=== PATIENT | female | born 1995 | race Caucasian/White ===

== ENCOUNTER 2020-11-19 15:15 | Outpatient (REF) | payer OTHER, SELFPAY | END 2020-11-19 15:16 | disposition home or self-care (01) | LOC: HO.LAB 15:15 | PROVIDERS: Visit Provider Internal Medicine | DX: Z20.822 Contact with and (suspected) exposure to COVID-19 (principal) | CPT/HCPCS: 36415; C9803; U0003 ==

== ENCOUNTER 2021-03-01 12:31 | Outpatient (REF) | payer OTHER, SELFPAY ==
[2021-03-01 13:04] LABS: COVID-19 Test Negative (Negative); IDNOW Serial# 55D5AD1C
== END 2021-03-01 12:32 | disposition home or self-care (01) ==
LOC: HO.LAB 12:31
PROVIDERS: Visit Provider Internal Medicine
DX: Z20.822 Contact with and (suspected) exposure to COVID-19 (principal)
CPT/HCPCS: 36415; 87635; C9803

== ENCOUNTER → 2023-05-15 11:33 | Outpatient (BNVA) | payer OTHER, SELFPAY | PROVIDERS: Visit Provider Physician Assistant ==

== ENCOUNTER 2023-06-09 13:00 | Outpatient (AMB) | payer OTHER, SELFPAY ==
--- NOTE | 2023-06-09 13:03 | A.OFFVIS_ITS ---
Intake VS Expanded 06/09/23 13:07 Height 5 ft 5 in Weight 286 lb BMI 47.6 BP 131/78 Blood Pressure Location Rt brachial Blood Pressure Position Sitting Pulse 85 Pulse Source Pulse Oximeter Temp 97.6 F Temperature Source Temporal Artery Scan Pulse Oximetry 100 Oxygen Delivery Method Room Air Body Fat 141.8 Body Fat Percentage 49.6 Free Fat Mass 144.2 Muscle Mass 137.0 Visceral Mass 15.0 Water Mass 103.6 BMR 2,104 Intake Visit Reasons: (ov) [employer] SWL BMI 47.9 Medical Health Researcher Required: No Allergies No Known Allergies Allergy (Verified 06/09/23 13:06) Medication List - Last Reconciled 06/09/23 by LALA Luciano No Known Home Meds HPI HPI Comments History of Present Illness Details Pt is here to start the [facility] loss program. She heard about our program from her mom. Her goal is to lose weight and achieve a healthy lifestyle. She reports first being concerned about her weight 3 years ago, highest weight to date was 286. Current weight is 286 pounds with a BMI of 47.6. She has tried multiple methods of weight loss including fad diets without permanent results. She lives with her and 3 kids. 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 She wakes at:?6 am, and goes to bed at?11 pm. Dinner is at 6 pm. Breakfast: oatmeal or coffee w 5 cream and 10 sugar AM snack: special K bar Lunch: leftovers, pizza, chipotle PM snack: skip Dinner: pasta, rice/beans/meat, plantains After dinner: skip Other snacks: cookies, chips, candy, ice cream Liquids: 128 oz water, no soda, rare juice Alcohol/marijuana/tobacco intake: none Exercise: none, no gym membership, could join a gym, no equipment in her home. GERD score: 27 TRIPP score: 4 ESS score: 8 QOL score: 101 PFSH Surgical History Hx of section Hx of cholecystectomy Hx of tubal ligation Family History Mother No problems noted. Father No problems noted. Brother No problems noted. Brother No problems noted. Brother No problems noted. Brother No problems noted. Sister No problems noted. Daughter No problems noted. Son No problems noted. Son No problems noted. Social History Alcohol intake: never Patient Tobacco Use Status: Never used Tobacco Physical Exam Vital Signs: Last Vital Signs Temp 97.6 F 06/09/23 13:07 Pulse 85 06/09/23 13:07 BP 131/78 06/09/23 13:07 Pulse Ox 100 06/09/23 13:07 Oxygen Delivery Method Room Air 06/09/23 13:07 BMI result Body Mass Index 47.6 Const General: cooperative, healthy appearing and no acute distress Orientation/consciousness: patient oriented x3 HEENT Head: Yes normal to inspection Ears: hearing grossly normal bilaterally General nose exam: Normal external nose present Face and sinus: Yes normal facial exam Eyes General: appearance normal, both eyes and all related structures Resp Effort & Inspection: normal respiratory effort Auscultation: clear to auscultation bilaterally Cardio Rate: regular rate Rhythm: regular rhythm Heart sounds: S1 normal heart sound present and S2 normal heart sound present GI Inspection: Yes normal to inspection, No distended and Yes obesity Palpation (GI): Soft to palpation, nontender and no guarding Auscultation: normal bowel sounds Skin General skin exam: no rashes or lesions noted Neuro General: patient oriented x3 Extrem General: No edema Psych Appearance: grossly normal Mental Status: mental status grossly normal Speech and movement: Normal speech and movement present Affect: normal affect Attitude: cooperative Assessment & Plan Assessment & Plan (1) Morbid obesity: Code(s): E66.01 - Morbid (severe) obesity due to excess calories Plan: This is a?27 yo fefmale who will start our SWL program to prepare for bariatric surgery.? Blood work, h pylori , CXR, ECG, Abd US and UGI have been ordered. She is being scheduled for RD and BH initial consultations. She will start SWL classes and watch the first three videos before her next appointment. ? Adequate sleep of 7-8 hours per night discussed, awakening at 6 am and going to bed at 11 pm with a goal of slowly moving the bedtime to 10 pm ? Purchase body composition analyzer scale (Malik thao or Marcellus recommended) and check weight weekly. The best time to do this is first thing in the morning after going to the bathroom. 1. Nutritional counseling: Be sure to careful read the number of scoops per shake Start with 3 Premier Protein shakes ([employer], [employer], [facility]) First shake (2 scoops in 8 oz low fat unsweetened almond milk or water) at 7am- 9am, Second shake (1 scoop in 8 oz unsweetened almond milk or water) at 11am-1pm 1 protein bar (Zone Perfect bars at [employer], [facility], or [employer]) at 3pm-5pm. Dinner at 6pm (9 forks of protein and 9 forks of salad/vegetables). Meal to include lean meat (beef, fish, pork, turkey, chicken), cooked vegetables or a salad with olive oil and/or fruits (berries, pears, apples, kiwi). Avoid salt, breads, potatoes, rice, pasta, desserts. Another shake with 1 scoop in 8 oz unsweetened almond milk at 8pm-10pm. Try to drink 64 oz of water daily and avoid soda and juices. ?2. Each shake would be drunk slowly, like coffee in a period of 2 hours. ?3. Cut each bar in 4 pieces and eat each piece in 30 min ?to make each bar last 2 hours. ?4. I emphasized the importance of measuring accurately the food portion and measure it carefully when serving the food on the plate ?5. The meal portions include 9 full-size forks of meat and 9 full-size forks of salad. You always eat the meat portion but you can replace up to half of the forks of salad/vegetables with rice, potatoes or pasta, or a fruit ?if you like. The less you do it the better weight loss will be. ?6. One full-size fork is what can be scooped on the fork without falling aside and not what can be bit with the fork. Use regular forks like those you find in a typical restaurant. ?7.? Please send me weight measurements as soon as possible and then once a week. Always include your diet and exercise plan. Alternatively come weekly at the office for weight checks and send me the measurements. ?8. Exercise counseling: Begin by watching a stretching for beginners video. Start slowly and begin to stretch your muscles. You should do this before and after each exercise session to prevent injury. Please join your friend's gym near your home. Ask the salary manager or one of the trainers how to use the machines if you are unfamiliar with them. Start elliptical with a resistance of 2. Increase resistance by 1 every 3 min to your most comfortable resistance with a max resistance of 8. Reduce the resistance by 1 every 3 minutes back down to 2 and repeat cycles for 300 calories. Alternatively, start treadmill with a speed of 3.0 and incline of 0, increasing incline by 1 every 3 minutes to the highest comfortable level (max 6 for now) then decrease in the same fashion. Repeat process to a goal of 300 calories. Goal of 2000 calories burned or more weekly. You may also consider use of the stationary bike. The easiest would be to chose the fat-burn or interval training program on the machine and do this until you reach the 300 calorie goal. Alternatively, you can manually adjust the resistance in a similar fashion as mentioned above, (resistance of 2-8 with a goal speed of 12 mph). Tracking calories is essential. 9. Alternatively start walking outside daily, tracking calories with a goal of 300 calories per day, daily. You can download the kia PureHistory which can track your time, distance and calories while walking outside. You press start in the kia when you start and then stop when you are finished. 10.? It is important to communicate by text with me weekly, your weight and if you arre having any problems with the plans. 11. Please get labs, EKG and chest X-Ray within 1 week. 12. Discussed and answered all questions regarding?obtained consent to participate in the [place] [facility]?Registry. 13. Please follow the diet plan exactly, without any change. If you do not like something about the plan or you feel hungry, you need to communicate with me so I can help you revise the plan. You should not change the plan yourself. Text me at [phone] 14. Goal is to lose at least 12 pounds in the first month 15. Goal is to lose 10% of your weight before surgery, which is about 28 lbs. Ultimate weight goal: 258 lbs before surgery Patient is morbidly obese and is not considered stable at this time.?I spent a total of 70 minutes reviewing/updating records, examining the patient and counseling the patient on weight management as detailed above. Orders: Orders Vitamin B12 and Folate Today E66.01 - Morbid (severe) obesity due to excess calories Comprehensive Met. Panel Today E66.01 - Morbid (severe) obesity due to excess calories C Reactive Protein Today E66.01 - Morbid (severe) obesity due to excess calories Ferritin Today E66.01 - Morbid (severe) obesity due to excess calories Hemoglobin A1c Today E66.01 - Morbid (severe) obesity due to excess calories Insulin Today E66.01 - Morbid (severe) obesity due to excess calories IRON PROFILE Today E66.01 - Morbid (severe) obesity due to excess calories Lipid Panel Today E66.01 - Morbid (severe) obesity due to excess calories PTHI Today E66.01 - Morbid (severe) obesity due to excess calories TSH reflex Free T4 Today E66.01 - Morbid (severe) obesity due to excess calories Vitamin A Today E66.01 - Morbid (severe) obesity due to excess calories Vitamin B1 Today E66.01 - Morbid (severe) obesity due to excess calories Vitamin D 25-OH Total Today E66.01 - Morbid (severe) obesity due to excess hernandez jeannine Zinc Today E66.01 - Morbid (severe) obesity due to excess calories ECG 12 lead EKG Today E66.01 - Morbid (severe) obesity due to excess calories FL upper GI w air Today E66.01 - Morbid (severe) obesity due to excess calories Complete Blood Count Auto Diff Today E66.01 - Morbid (severe) obesity due to excess calories H Pylori Breath Test Today E66.01 - Morbid (severe) obesity due to excess calories US abdomen comp w elastography Today E66.01 - Morbid (severe) obesity due to excess calories XR chest 2V Today E66.01 - Morbid (severe) obesity due to excess calories Referrals Behavioral Health Referral E66.01 - Morbid (severe) obesity due to excess calories Nutrition/Dietitian Referral E66.01 - Morbid (severe) obesity due to excess calories Coding Level of Care Code New Pt Level 5 (30319) Diagnoses Morbid obesity E66.01 Time Spent (min) 70
[2023-06-09 13:07] VITALS: BP 131/78; PULSE 85; TEMP 36.4; O2SAT 100; BMI 47.6
== END 2023-06-09 15:28 | disposition home or self-care (01) ==
PROVIDERS: Visit Provider Physician Assistant Surgical
DX: E66.01 Morbid (severe) obesity due to excess calories (principal); Z68.42 Body mass index [BMI] 45.0-49.9, adult
CPT/HCPCS: 99205

== ENCOUNTER 2023-06-09 13:00 | Outpatient (REF) | payer OTHER, SELFPAY ==
[2023-06-10 10:30] LABS: H Pylori Breath Test Negative (Negative)
== END 2023-06-09 13:01 | disposition home or self-care (01) ==
LOC: HO.LNP 13:00
PROVIDERS: Visit Provider Physician Assistant Surgical
DX: E66.01 Morbid (severe) obesity due to excess calories (principal); Z71.3 Dietary counseling and surveillance; Z68.42 Body mass index [BMI] 45.0-49.9, adult
CPT/HCPCS: 83013; 99202

== ENCOUNTER 2023-06-20 15:42 | Outpatient (AMB) | payer OTHER, SELFPAY ==
--- NOTE | 2023-06-20 15:54 | MHC.AMNUTRGE ---
Intake Intake Visit Reasons: (OV) Initial Nutrition SWL Allergies No Known Allergies Allergy (Verified 06/09/23 13:06) HPI Nutrition Presentation Details [employer] weight 286 current weight 282# Reason for consult elevated BMI Unstable SDH Reports use of SNAP and WIC Diet Assmnt Details premier shake 2 scoops - is using almond milk but she receives Lactaid through [facility] and would be much easier financially on the family if she could use Lactaid. She also gets chobani less sugar yogurt with [facility] premier shake 1 scoop skips bar because doesn't like the chalky taste - has not tried any bars on our list Dinner: Protein and vegetable, has eliminated carbs Exercise: None currently. She is planning to get a [employer] fitness membership Online classes: 02/04 Dietary counseling reduction Diagnosis Nutrition problem #1 overweight/obesity As related to (etiology) #1 excess energy intake and physical inactivity As evidenced by (sign/symptom) #1 high BMI Monitoring/Goals Nutrition problem monitoring total energy intake, level of knowledge/skill, total PRO intake, total CHO intake and weight Outcome progress progressing Learning/Education Readiness to learn excellent Stages of change action Educational materials provided Yes Most Recent Diabetes Results: No Data to Display [facility] Surgical History Hx of section Hx of cholecystectomy Hx of tubal ligation Family History Mother No problems noted. Father No problems noted. Brother No problems noted. Brother No problems noted. Brother No problems noted. Brother No problems noted. Sister No problems noted. Daughter No problems noted. Son No problems noted. Son No problems noted. Social History Alcohol intake: never Patient Tobacco Use Status: Never used Tobacco Assessment & Plan Assessment & Plan (1) Morbid obesity: Code(s): E66.01 - Morbid (severe) obesity due to excess calories Patient Instructions: Overall is doing very well. Gave patient a few options for flexibility. Provided protein bar handout. May also replace a bar with yogurt and a serving of fruit. May replace the 1st protein shake with a premade- educated about protein supplements protein content. Can use Lactaid milk, also educated on HIP program. Gave recipe resources. She will complete online classes and follow-up with me August 02 at 11:00 video Coding Level of Care Code Nutr Indiv Intake (86252) Diagnoses Morbid obesity E66.01 Time Spent (min) 30
== END 2023-06-20 16:21 | disposition home or self-care (01) ==
PROVIDERS: Visit Provider Dietitian, Registered
DX: E66.01 Morbid (severe) obesity due to excess calories (principal)

== ENCOUNTER → 2023-06-20 15:42 | Outpatient (BNVA) | payer OTHER, SELFPAY | PROVIDERS: Visit Provider Dietitian, Registered | DX: E66.01 Morbid (severe) obesity due to excess calories (principal) | CPT/HCPCS: 97802 ==

== ENCOUNTER 2023-07-11 11:13 | Outpatient (AMB) | payer OTHER, SELFPAY ==
--- NOTE | 2023-07-11 11:09 | A.OFFWM_ITS ---
Intake Intake Visit Reasons: VIDEO Intake Allergies No Known Allergies Allergy (Verified 06/09/23 13:06) PFSH Surgical History Hx of section Hx of cholecystectomy Hx of tubal ligation Family History Mother No problems noted. Father No problems noted. Brother No problems noted. Brother No problems noted. Brother No problems noted. Brother No problems noted. Sister No problems noted. Daughter No problems noted. Son No problems noted. Son No problems noted. Social History Alcohol intake: never Patient Tobacco Use Status: Never used Tobacco Behavioral Health Assessment Weight Management Therapy Therapy Notes Details Pt is looking to have weight loss surgery to help improve her health and quality of life. She reported no current mental health issues and is not in therapy but was over ten years ago. She reported going through traumatic life event last year and this caused her to eat more, her relationship suffered and it increased her anxiety. No history of any problems with drugs or alcohol. Her parking regulation enforcement officer is currently assisting them with marriage counseling. Presenting Concerns Referral Source provider Reason for referral weight loss surgery evaluation Precipitating Event obesity Living Situation Current Living Situation Rent At risk of losing current housing? No Satisfied with current living situation? Yes Comments Patient lives with her and three children ages 16 months, 2, and 8. Food/Weight/Diet Expectations of change weight loss and maintenance History/Relationship with food Pt reported eating junk food, pizza, McDonal[employer], other fast food , butterfingers and M&M's large amounts at night. History/Relationship with weight She reported struggling with her weight for several years. Pt stated that she is currently at her heaviest. History/Relationship with dieting various fad diets, lost 30lbs two years ago with a horse trainer and healthier diet, [employer], lost 20lbs. Binge Eating Do you frequently eat large amounts of food in short periods of time, not feeling physically hungry? No Do you feel out of control when you eat a large amount of food in a short period of time? No Do you eat large amounts of food rapidly and typically alone? No Night Eating Do you wake up at least once during the night to eat? No If you wake up in the night, do you find that it is necessary to eat something in order to fall back asleep? Yes Do you have little or no appetite in the morning and feel very hungry in the evening, often overeating between dinner and when you go to bed? 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 none Education Highest grade completed bachelor's degree in leadership and organizational studies Preferred learning style Auditory, Verbal, Written, Learn by doing and Visual Currently enrolled in educational program? No Interested in further educational program? 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 No Meaningful activities used to love exercise, nature, and reading when she used to have more free time. Financial Situation Describe current financial situation Comfortable Financial assistance? None Service Service? No Mental Health and Addiction Treatment Current/Past substance abuse? No Current/Past addictive behavior concerns? No Medical and Physical Health Summary Physical exam in the last year? Yes Pain Screening Current pain? No Pain in the last few months? No Medications Is the patient compliant with medications? Yes Does the patient have Solo Guardian in place? Not applicable Does the patient use complimentary health approaches? No Trauma/Abuse History History of trauma? Yes Questionnaires PHQ-9 Over the last 2 weeks, how often have you been bothered by any of the following problems? 1. Little interest or pleasure in doing things: not at all 2. Feeling down, depressed, or hopeless: not at all 3. Trouble falling or staying asleep, or sleeping too much: several days 4. Feeling tired or having little energy: several days 5. Poor appetite or overeating: more than half the days 6. Feeling bad about yourself - or that you are a failure or have let yourself or your family down: several days 7. Trouble concentrating on things, such as reading the newspaper or watching television: not at all 8. Moving or speaking so slowly that other people could have noticed. Or the opposite - being so fidgety or restless that you have been moving around a lot more than usual: several days 9. Thoughts that you would be better off or of hurting yourself in some way: not at all Total score: 6 Source: Developed by Drs. Irving Borrego, Allie Lambert, Ace Madsen and colleagues, with an educational geraldo from [employer]. Binge Eating Scale Group 1 A. I don't feel self-conscious about my wt. or body size when I'm with others. B. I feel concerned about how I look to others, but it normally does not make me fell disappointed with myself C. I do get self-conscious about my appearance and wt. which makes me feel disappointed in myself. D. I feel very self-conscious about my wt. and frequently I feel intense shame and disgust for myself. I try to avoid social contacts because of my self- consciousness. Response Group 1: C Group 2 A. I don't have any difficulty eating slowly in the proper manner. B. Although I seem to gobble down foods, I don't end up feeling stuffed because of eating to much. C. At times, I tend to eat quickly and then, I feel uncomfortably full afterwards. D. I have the habit of bolting down my food, without really chewing it. When this happens I usually feel uncomfortably stuffed because I've eaten to much. Response Group 2: C Group 3 A. I feel capable to control my eating urges when I want to. B. I feel like I have failed to control my eating more than the average person. C. I feel utterly helpless when it comes to feeling in control of my eating urges. D. Because I feel so helpless about controlling my eating I have become very desperate about trying to get control. Response Group 3: B Group 4 A. I don't have the habit of eating when I'm bored. B. I sometimes eat when I'm bored, but often I'm able to get busy and get my mind off food. C. I have a regular habit of eating when I'm bored, but occasionally, I can use some other activity to get my mind off eating. D. I have a strong habit of eating when I'm bored. Nothing seems to help me breath the habit. Response Group 4: C Group 5 A. I'm usually physically hungry when I eat something. B. Occasionally, I eat something on impulse even though I really am not hungry. C. I have the regular habit of eating foods, that I might not really enjoy, to satisfy a hungry feeling even though physically, I don't need the food. D. Although I'm not physically hungry, I get a hungry feeling in my mouth that only seems to be satisfied when I eat a food, like sandwich, that fills my mouth. Sometimes, when I eat the food to satisfy my mouth hunger, I then spit the food out so I won't gain weight. Response Group 5: A Group 6 A. I don't feel any guilt or self-hate after I overeat. B. After I overeat, occasionally I feel guilt or self-hate. C. Almost all the time I experience strong guilt or self-hate after I overeat. Response Group 6: B Group 7 A. I don't lose total control of my eating when dieting even after periods when I overeat. B. Sometimes when I eat a forbidden food on a diet, I feel like I blew it and eat even more. C. Frequently, I have the habit of saying to myself, I've blown it now, why not go all the way, when I overeat on a diet. When that happens I eat more. D. I have a regular habit of starting a strict diets for myself but I break the diets by going on an eating binge. My life seems to be either a feast or famine. Response Group 7: D Group 8 A. I rarely eat so much food that I feel uncomfortably stuffed afterwards. B. Usually about once a month, I each such a quantity of food, I end up feeling very stuffed. C. I have regular periods during the month when I eat large amounts of food, either at mealtime or at snacks. D. I eat so much food that I regularly feel quite uncomfortable after eating and sometimes a bit nauseous. Response Group 8: C Group 9 A. My level of calorie intake does not go up very high or go down very low on a regular basis. B. Sometimes after I overeat, I will try to reduce my caloric intake to almost nothing to compensate for the excess calories I've eaten. C. I have a regular habit of overeating during the night. It seems that my routine is not to be hungry in the morning but overeat in the evening. D. In my adult years, I have had week-long periods where I practically starve myself. This follows periods when I overeat. It seems I live a life of either feast or famine. Response Group 9: A Group 10 A. I usually am able to stop eating when I want to. I know when enough is enough. B. Every so often, I experience a compulsion to eat which I can't seem to control. C. Frequently, I experience strong urges to eat which I seem unable to control, but at other times I can control my eating urges. D. I feel incapable of controlling urges to eat. I have a fear of not being able to stop eating voluntarily. Response Group 10: B Group 11 A. I don't have any problem stopping eating when I feel full. B. I usually can stop eating when I feel full but occasionally overeat leaving me feeling uncomfortably stuffed. C. I have a problem stopping eating once I start and usually I feel uncomfortably stuffed after I eat a meal. D. Because I have a problem not being able to stop eating when I want, I sometimes have to induce vomiting to relieve my stuffed feeling. Response Group 11: B Group 12 A. I seem to eat just as much when I'm with others, Family social gatherings as when I'm by myself. B. Sometimes, when I'm with other persons, I don't eat as much as I want to eat because I'm self-conscious about my eating. C. Frequently, I eat only a small amount of food when others are present, because I'm very embarrassed about my eating. D. I feel so ashamed about overeating that I pick times to overeat when I know no one will see me. I feel like a closet eater. Response Group 12: B Group 13 A. I eat three meals a day with only an occasional between meal snack. B. I eat 3 meals a day, but I also normally snack between meals. C. When I am snacking heavily, I get in the habit of skipping regular meals. D. There are regular periods when I seem to be continually eating, with no planned meals. Response Group 13: D Group 14 A. I don't think much about trying to control unwanted eating urges. B. At least some of the time, I feel my thoughts are pre-occupied with trying to control my eating urges. C. I feel that frequently I spend much time thinking about how much I ate or about trying not to eat anymore. D. It seems to me that most of my waking hours are pre-occupied by thoughts about eating or not eating. I feel like I'm constantly struggling not to eat. Response Group 14: A Group 15 A. I don't think about food a great deal. B. I have strong craving for food but they last only for brief periods of time. C. I have days when I can't seem to think about anything else but food. D. Most of my days seem to be pre-occupied with thoughts about food. I feel like I live to eat. Response Group 15: D Group 16 A. I usually know whether or not I'm physically hungry. I take the right portion of food to satisfy me. B. Occasionally, I feel uncertain about knowing whether or not I'm physically hungry. A these times it's hard to know how much food I should take to satisfy me. C. Even though I might know how many calories I should eat, I don't have any idea what is a normal amount of food for me. Response Group 16: C Binge Eating Score: 24 Score less than 17 Minimal Risk Score between 18-26 Moderate Risk Score between 27-46 High Risk Assessment & Plan Assessment & Plan (1) Generalized anxiety disorder: Comment: R/O with depression Code(s): F41.1 - Generalized anxiety disorder (2) Morbid obesity: Code(s): E66.01 - Morbid (severe) obesity due to excess calories Plan Patient may have some binge eating/emotional eating tendencies as well as depression/anxiety. She reported a traumatic life event last year as well as having a baby. She will be seen again. Telehealth Telehealth Location of provider rendering services: other Location of patient: address on file Patient Identification confirmed using: Name, : Yes Telehealth method: video Patient verbally consented to treatment: Yes Patient verbally consented to billing insurance company: Yes Patient informed of any privacy concerns related to visit: Yes Minutes spent on Phone/Video with Pt.: 40 Coding Level of Care Code Tele Psy Diag Eval (55406) Diagnoses Generalized anxiety disorder F41.1 Morbid obesity E66.01 Time Spent (min) 40
== END 2023-07-11 11:33 | disposition home or self-care (01) ==
LOC: HO.HBST 11:13
PROVIDERS: Visit Provider Counselor Mental Health
DX: F41.1 Generalized anxiety disorder (principal); E66.01 Morbid (severe) obesity due to excess calories
CPT/HCPCS: 90791

== ENCOUNTER → 2023-07-11 11:13 | Outpatient (BNVA) | payer OTHER, SELFPAY | PROVIDERS: Visit Provider Counselor Mental Health ==

== ENCOUNTER 2023-07-13 09:00 | Outpatient (REF) | payer OTHER, SELFPAY ==
[2023-07-13 09:22] LABS: MANUAL DIFF FLAG NO
[2023-07-13 09:45] LABS: Basophils Percent Auto 0.6 % (0-2); Eosinophils Absolute Auto 0.1 X10*3/uL (0.0-0.4); Eosinophils Percent Auto 2.2 % (0-4); Hematocrit 39.2 % (37.0-47.0); Hemoglobin 12.1 g/dl (12.0-16.0); Imm Gran Abs Auto 0.02 X10*3/uL (0.00-0.03); Imm Gran Pct Auto 0.4 % (0.0-0.4); Lymphocytes Absolute Auto 1.6 X10*3/uL (1.2-4.9); Lymphocytes Percent Auto 29.2 % (20-40); Mean Corpuscular HGB Conc 30.9 g/dl (31.0-35.0); Mean Corpuscular Hemoglobin 25.4 pg (27.0-33.0); Mean Corpuscular Volume 82.4 fL (80.0-98.0); Mean Platelet Volume 10.5 fL (9.4-12.3); Monocytes Absolute Auto 0.3 X10*3/uL (0.1-1.2); Monocytes Percent Auto 6.2 % (2-11); Neutrophils Absolute Auto 3.3 x10*3/uL (2.0-8.3); Neutrophils Percent Auto 61.4 % (45-73); Platelet Count 251 X10*3/uL (160-400); Red Blood Count 4.76 X10*6/uL (4.20-5.50); Red Cell Distribution Width 14.8 % (11.0-16.0); White Blood Count 5.4 X10*3/uL (4.8-10.8)
[2023-07-13 10:36] LABS: Estimated Average Glucose 103 mg/dL; Hemoglobin A1C 167.0551 umol/L; Hemoglobin A1c % 5.2 % (<6.0)
[2023-07-13 10:41] LABS: Alanine Aminotransferase 14 U/L (0-31); Albumin Level 4.1 g/dL (3.5-5.0); Alkaline Phosphatase 103 U/L (39-117); Anion Gap 13 (12-20); Aspartate Amino Transferase 15 U/L (5-31); Bilirubin Total 0.2 mg/dL (0.0-1.0); Blood Urea Nitrogen 12 mg/dL (9-16); C Reactive Protein 1.33 mg/dL (< or = 0.50); Calcium 9.5 mg/dL (8.4-10.2); Carbon Dioxide 24 mmol/L (22-29); Chloride 110 mmol/L (96-108); Cholesterol 170 mg/dL (<200); Estimated Glomerular Filt Rate > 60; Glucose Random 96 mg/dL (60-115); HDL Cholesterol 41 mg/dL (>40); Iron 37 mcg/dL (30-160); LDL Cholesterol Calculated 116 mg/dL (<100); Percent Iron Saturation 11 % (15-50); Potassium 4.5 mmol/L (3.3-5.1); Sodium 142 mmol/L (135-145); Total Iron Binding Capacity 335 mcg/dL (228-428); Total Protein 7.5 g/dL (6.5-8.0); Triglycerides 67 mg/dL (<150); Unsaturated Iron Binding 298 ug/dL
[2023-07-13 10:56] LABS: Folate 12.4 ng/mL (> or = 4.0); Vitamin B12 460 pg/mL (200-900)
[2023-07-13 11:00] LABS: Ferritin 34 ng/mL (10-122); Insulin 12 uU/mL (2-29); TSH reflex Free T4 1.32 uIU/mL (0.32-4.0); Vitamin D 25-OH Total 25.1 ng/mL (>30)
[2023-07-17 13:59] LABS: Calcium (PTHI) 9.4 mg/dL (8.6-10.2); PTHI 77 pg/mL (16-77)
[2023-07-18 02:24] LABS: Zinc 66 mcg/dL (60-130)
[2023-07-18 15:48] LABS: Vitamin B1 12 nmol/L (8-30)
[2023-07-20 00:39] LABS: Vitamin A 44 mcg/dL (38-98)
== END 2023-07-13 09:01 | disposition home or self-care (01) ==
LOC: HO.LAB 09:00
PROVIDERS: Visit Provider Physician Assistant Surgical
DX: E66.01 Morbid (severe) obesity due to excess calories (principal)
CPT/HCPCS: 36415; 80053; 80061; 82306; 82607; 82728; 82746; 83036; 83525; 83540; 83970; 84425; 84443; 84590; 84630; 85025; 86140

== ENCOUNTER 2023-07-24 11:52 | Outpatient (AMB) | payer OTHER, SELFPAY ==
--- NOTE | 2023-07-24 10:44 | A.OFFVIS_ITS ---
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 They were last seen in the office on 06/09/23, recorded weight at that time was 286 pounds, with a BMI of 47.6. Today's weight is 274 pounds and BMI is 45.6. There has been a weight loss of 12 pounds since initiating the surgical weight loss program on 06/09/23 with a total body weight loss of 4.1 %. Pre op work up completed as follows: SWL classes:? 04/06 BH appts: f/u 08/02/23 ? ? RD appts: f/u 08/02/23 Labs: 07/13/23-low D, B12:460 H. pylori: 06/09/23-neg CXR: not yet done EKG: not yet done ABD U/S: 07/27/23 UGI: 07/27/23 The patient reports she is doing ok. She feels as though the shakes are difficult to take consistently. She is not doing the nighttime shake, not doing the bar either. Not measuring by forks. Does not want to do the bars and not having snacks after dinner. Current meal plan includes: 3 Premier Protein shakes ([employer], [employer], [employer]) First shake (2 scoops in 8 oz low fat unsweetened almond milk or water) at 7am- 9am, Second shake (1 scoop in 8 oz unsweetened almond milk or water) at 11am-1pm 1 protein bar ([employer] Perfect bars at [employer], [employer], or [employer]) at 3pm-5pm. Dinner at 6pm (9 forks of protein and 9 forks of salad/vegetables). Another shake with 1 scoop in 8 oz unsweetened almond milk at 8pm-10pm. Drinking 64 oz of water Current exercise plan includes: [employer], 3 x per week, elliptical, 100 calories. PFSH Surgical History Hx of cholecystectomy Hx of tubal ligation Hx of section Family History Mother No problems noted. Father No problems noted. Brother No problems noted. Brother No problems noted. Brother No problems noted. Brother No problems noted. Sister No problems noted. Daughter No problems noted. Son No problems noted. Son No problems noted. Social History Alcohol intake: never Patient Tobacco Use Status: Never used Tobacco Review of Systems Const All systems reviewed & are unremarkable except as noted in HPI and below Assessment & Plan Assessment & Plan (1) Morbid obesity: Code(s): E66.01 - Morbid (severe) obesity due to excess calories Plan: change meal plan to: 3 Premier Protein shakes ([employer], [employer], [facility]) First shake (2 scoops in 8 oz low fat unsweetened almond milk or water) at 7am- 9am, Second shake (2 scoop in 8 oz unsweetened almond milk or water) at 12pm-2pm Dinner at 6pm (10 forks of protein and 10 forks of salad/vegetables). Increase exercise to include home videos on days not going to the gym, increase time on elliptical to 30 min and 30 on treadmill or bike rtc 3 weeks Telehealth Telehealth Location of provider rendering services: practice address Location of patient: other Patient Identification confirmed using: Name, : Yes Telehealth method: video Patient verbally consented to treatment: Yes Patient verbally consented to billing insurance company: Yes Patient informed of any privacy concerns related to visit: Yes Minutes spent on Phone/Video with Pt.: 15 Coding Level of Care Code Tele Est Pt Level 3 (73232) Diagnoses Morbid obesity E66.01 Time Spent (min) 20
[2023-07-24 10:45] VITALS: BMI 45.6
== END 2023-07-24 11:54 | disposition home or self-care (01) ==
LOC: HO.HBS 11:52
PROVIDERS: Visit Provider Physician Assistant Surgical
DX: E66.01 Morbid (severe) obesity due to excess calories (principal); Z68.42 Body mass index [BMI] 45.0-49.9, adult
CPT/HCPCS: 99213

== ENCOUNTER → 2023-07-24 11:52 | Outpatient (BNVA) | payer OTHER, SELFPAY | PROVIDERS: Visit Provider Physician Assistant Surgical ==

== ENCOUNTER 2023-07-27 10:00 | Outpatient (REF) | payer OTHER, SELFPAY ==
--- NOTE | ~2023-07-27 | FL_ITS ---
EXAMINATION: XR FLUOROSCOPY UPPER GI WITH AIR CLINICAL INFORMATION: Morbid obesity due to excess calories; preoperative; GERD. COMPARISON: None relevant. TECHNIQUE: Fluoroscopic air contrast upper GI examination was performed utilizing standard techniques with thin and thick barium and effervescent granules. Numerous spot images were obtained. FINDINGS: Hypopharyngeal structures appear normal without evidence of mass or diverticulum. There was no significant cricopharyngeal achalasia. Dual and single contrast images of the esophagus demonstrate normal caliber, contour, and mucosal pattern. No evidence of stricture, mass, or ulcerations identified. Esophageal peristalsis was normal. No evidence of definitive hiatus hernia identified. GE junction and LES have a normal appearance. There was episodic gastroesophageal reflux to the level of the aortic arch during the examination, predominantly in the LPO position. Dual contrast and single contrast images of the stomach demonstrated normal contour and mucosal pattern without evidence of mass, ulceration, or other abnormality. Contrast freely passed into the gastric antrum and duodenal bulb without delay. Single and air-contrast images of the duodenal bulb demonstrate no abnormality. The duodenal sweep has a normal appearance, course, and mucosal fold appearance. The imaged proximal jejunum has a normal fold pattern and caliber. Cholecystectomy clips were noted. FLUOROSCOPY TIME: 3 minutes 5 seconds. Number of Spot Images: 15 fluoroscopic spot images obtained. 5 image hold fluoroscopic runs were obtained. DOSE AREA PRODUCT: 4000 uGy-m2 (microgray-meter squared) FL/FL upper GI w air IMPRESSION: 1. Episodic mild to moderate gastroesophageal reflux to the level of the raul, predominantly in the LPO position. 2. No definite hiatus hernia seen. 3. Otherwise normal esophagus, stomach, duodenal bulb, sweep, and proximal small bowel.
--- NOTE | ~2023-07-27 | XR_ITS ---
EXAMINATION: XR CHEST CLINICAL INFORMATION: Obesity COMPARISON: Previous chest x-ray August 2017 TECHNIQUE: 2 views of the chest were obtained. FINDINGS: No significant abnormality is noted involving the heart, lungs, mediastinum, bony thorax or soft tissues. XR/XR chest 2V IMPRESSION: Unremarkable examination.
--- NOTE | ~2023-07-27 | US_ITS ---
EXAMINATION: US COMPLETE ABDOMEN WITH LIVER ELASTOGRAPHY CLINICAL INFORMATION: Obesity COMPARISON: CT of the abdomen and pelvis most recent March 2018 TECHNIQUE: Real-time imaging of the abdominal viscera. Noninvasive ultrasound liver fibrosis assessment is performed using Champ ElastPQ point quantification shear wave elastography (2D-SWE) with a C5-2 MHz transducer. Multiple elastography samples are obtained. FINDINGS: PANCREAS: Normal. ABDOMINAL AORTA: The proximal, middle, and distal aortic segments are normal in caliber. INFERIOR VENA CAVA: Visualized portions are normal. LIVER: Liver echotexture is slightly increased. The liver is slightly enlarged. The liver contour is normal. No focal lesion or intrahepatic biliary duct dilatation. The right lobe measures 19 cm in length. The left lobe measures 14 cm in length. Portal flow is normal/hepatopedal Shear wave liver elastography median stiffness is 1.6 m/s (reference: normal median stiffness is 1.3 m/s or less). IQR/median stiffness to assess sampling precision is 0.12 (reference: good quality data set is IQR/median stiffness of 0.15 or less). GALLBLADDER: Surgically removed COMMON BILE DUCT: Normal in caliber measuring 0.7 cm in diameter. RIGHT KIDNEY: Normal. No hydronephrosis. No renal calculi or focal parenchymal lesions. The kidney measures 12 cm in maximum dimension. LEFT KIDNEY: Normal. No hydronephrosis. No renal calculi or focal parenchymal lesions. The kidney measures 12 cm in maximum dimension. SPLEEN: Normal. The spleen measures 12 cm in maximum dimension. FREE FLUID: None. US/US abdomen comp w elastography IMPRESSION: 1. Impression: Slightly enlarged echogenic liver probably representing fatty infiltration. 2. Liver elastography: Adequate liver sampling. In the absence of other known clinical signs, rules out compensated advanced chronic liver disease. REFERENCE: Society of Radiologists in Ultrasound Liver Stiffness Thresholds (2020): LIVER STIFFNESS THRESHOLDS: *Liver Stiffness equal or less than 1.3 m/s: High probability of being normal. *Liver Stiffness less than 1.7 m/s: In the absence of other known clinical signs, rules out compensated advanced chronic liver disease. *Liver Stiffness 1.7-2.1 m/s: Suggestive of compensated advanced chronic liver disease but need further test for confirmation. *Liver Stiffness over 2.1 m/s: Rules in compensated advanced chronic liver disease. *Liver Stiffness over 2.4 m/s: Suggestive of clinically significant portal hypertension. QUALITY OF DATA SET: *IQR/Median value equal or less than 0.15 implies a quality data set. *IQR/Median value over 0.15 implies a poor quality data set. SIGNIFICANT CHANGE FROM PRIOR EXAM: Significant change if liver stiffness measurement is 10% or greater from prior exam. OTHER CONSIDERATIONS: The stage of liver fibrosis may be overestimated in the setting of acute hepatitis, liver inflammation, elevated liver function tests, hepatic vascular congestion, obstructive cholestasis, non-fasting state, and infiltrative diseases such as amyloidosis and lymphoma. In some patients with NAFLD, the liver stiffness thresholds for compensated advanced chronic liver disease may be lower. In causes other than viral hepatitis and NAFLD, liver stiffness thresholds are not well established.
== END 2023-07-27 10:01 | disposition home or self-care (01) ==
LOC: HO.US 10:00
PROVIDERS: Visit Provider Physician Assistant Surgical
DX: E66.01 Morbid (severe) obesity due to excess calories (principal)
CPT/HCPCS: 71046; 74246; 76705; 76981

== ENCOUNTER → 2023-07-27 10:04 | Outpatient (BNV) | payer OTHER, SELFPAY | PROVIDERS: Visit Provider Radiology Diagnostic Radiology | DX: E66.01 Morbid (severe) obesity due to excess calories (principal); K21.9 Gastro-esophageal reflux disease without esophagitis | CPT/HCPCS: 74246 ==

== ENCOUNTER 2023-08-16 11:39 | Outpatient (AMB) | payer OTHER, SELFPAY ==
--- NOTE | 2023-08-16 13:24 | A.OFFWM_ITS ---
Intake Intake Visit Reasons: VIDEO BH F/U Allergies No Known Allergies Allergy (Verified 06/09/23 13:06) [facility] Surgical History Hx of cholecystectomy Hx of tubal ligation Hx of section Family History Mother No problems noted. Father No problems noted. Brother No problems noted. Brother No problems noted. Brother No problems noted. Brother No problems noted. Sister No problems noted. Daughter No problems noted. Son No problems noted. Son No problems noted. Social History Alcohol intake: never Patient Tobacco Use Status: Never used Tobacco Behavioral Health Assessment Weight Management Therapy Therapy Notes Details Patient reported doing well in the program, she has modified the plan a bit to help her be successful. She has been loosing weight and working out. Biggest struggle per her report is emotional, last week some depression, self defeating and critical thoughts. Used cognitive restructuring, carlee based counseling, parts work, motivational interviewing, and active listening. Pt is looking to have weight loss surgery to help improve her health and quality of life. She reported no current mental health issues and is not in therapy but was over ten years ago. She reported going through traumatic life event last year and this caused her to eat more, her relationship suffered and it increased her anxiety. No history of any problems with drugs or alcohol. Her roller embosser is currently assisting them with marriage counseling. Presenting Concerns Referral Source provider Reason for referral weight loss surgery evaluation Precipitating Event obesity Living Situation Current Living Situation Rent At risk of losing current housing? No Satisfied with current living situation? Yes Comments Patient lives with her and three children ages 16 months, 2, and 8. Food/Weight/Diet Expectations of change weight loss and maintenance History/Relationship with food Pt reported eating junk food, pizza, McDonalds, other fast food , butterfingers and M&M's large amounts at night. History/Relationship with weight She reported struggling with her weight for several years. Pt stated that she is currently at her heaviest. History/Relationship with dieting various fad diets, lost 30lbs two years ago with a marine animal trainer and healthier diet, [employer], lost 20lbs. Binge Eating Do you frequently eat large amounts of food in short periods of time, not feeling physically hungry? No Do you feel out of control when you eat a large amount of food in a short period of time? No Do you eat large amounts of food rapidly and typically alone? No Night Eating Do you wake up at least once during the night to eat? No If you wake up in the night, do you find that it is necessary to eat something in order to fall back asleep? Yes Do you have little or no appetite in the morning and feel very hungry in the evening, often overeating between dinner and when you go to bed? 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 none Education Highest grade completed bachelor's degree in leadership and organizational studies Preferred learning style Auditory, Verbal, Written, Learn by doing and Visual Currently enrolled in educational program? No Interested in further educational program? 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 No Meaningful activities used to love exercise, nature, and reading when she used to have more free time. Financial Situation Describe current financial situation Comfortable Financial assistance? None Service Service? No Mental Health and Addiction Treatment Current/Past substance abuse? No Current/Past addictive behavior concerns? No Medical and Physical Health Summary Physical exam in the last year? Yes Pain Screening Current pain? No Pain in the last few months? No Medications Is the patient compliant with medications? Yes Does the patient have Solo Guardian in place? Not applicable Does the patient use complimentary health approaches? No Trauma/Abuse History History of trauma? Yes Assessment & Plan Assessment & Plan (1) Generalized anxiety disorder: Comment: R/O with depression Code(s): F41.1 - Generalized anxiety disorder (2) Morbid obesity: Code(s): E66.01 - Morbid (severe) obesity due to excess calories Plan Patient may have some binge eating/emotional eating tendencies as well as depression/anxiety. She reported a traumatic life event last year as well as having a baby. She will be seen again. Telehealth Telehealth Location of provider rendering services: other Location of patient: address on file Patient Identification confirmed using: Name, : Yes Telehealth method: video Patient verbally consented to treatment: Yes Patient verbally consented to billing insurance company: Yes Patient informed of any privacy concerns related to visit: Yes Minutes spent on Phone/Video with Pt.: 30 Coding Level of Care Code Tele Psytx 30 mins (09060) Diagnoses Generalized anxiety disorder F41.1 Morbid obesity E66.01 Time Spent (min) 30
== END 2023-08-16 13:20 | disposition home or self-care (01) ==
LOC: HO.HBST 11:39
PROVIDERS: Visit Provider Counselor Mental Health
DX: F41.1 Generalized anxiety disorder (principal); E66.01 Morbid (severe) obesity due to excess calories
CPT/HCPCS: 90832

== ENCOUNTER → 2023-08-16 11:39 | Outpatient (BNVA) | payer OTHER, SELFPAY | PROVIDERS: Visit Provider Counselor Mental Health ==

== ENCOUNTER → 2023-08-28 08:19 | Outpatient (REF) | payer OTHER, SELFPAY ==
--- NOTE | 2023-08-28 08:24 | ECG_ITS ---
Test Reason : MORBID OBESITY Blood Pressure : / mmHG Vent. Rate : 081 BPM Atrial Rate : 081 BPM P-R Int : 130 ms QRS Dur : 080 ms QT Int : 376 ms P-R-T Axes : 045 048 041 degrees QTc Int : 436 ms Normal sinus rhythm Normal ECG When compared with ECG of 27-SEP-2017 10:37, No significant change was found Referred By: Joel Schroeder Electronically Signed By:HANNAH ELLSWORTH MD
== END ==
LOC: HO.CARD 08:19
PROVIDERS: Visit Provider Physician Assistant Surgical
DX: E66.01 Morbid (severe) obesity due to excess calories (principal)
CPT/HCPCS: 93005

== ENCOUNTER 2023-08-29 15:04 | Outpatient (AMB) | payer OTHER, SELFPAY ==
--- NOTE | 2023-08-29 14:43 | A.OFFVIS_ITS ---
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 They were last seen in the office on 07/24/2023, recorded weight at that time was 274 pounds, with a BMI of 45.6. Today's weight is 273.8 pounds and BMI is 45.6. There has been a weight loss of 12.2 pounds since initiating the surgical weight loss program on 06/09/2023 with a total body weight loss of 4.26 %. Pre op work up completed as follows: SWL classes:? 04/06 BH appts: f/u 08/30/23 ? ? RD appts: f/u 08/31/23 Labs: 07/13/23-low D, B12:460 H. pylori: 06/09/23-neg CXR: 07/27/23-nad EK08/28/23-normal ABD U/S: 07/27/23-fatty liver UGI: 07/27/23-mild-mod gerd The patient reports she is doing ok. She feels as though the shakes are difficult. She does not particularly like them but she is doing them by adding fruit (strawberries/bananas). She is doing 9 forks and 9 forks at night. She feels as though the exercise or lack is the barrier to more weight loss Current meal plan includes: 2 Premier Protein shakes ([employer], [employer], [employer]) First shake (2 scoops in 8 oz low fat unsweetened almond milk) at 7am-9am, Second shake (2 scoop in 8 oz unsweetened almond milk) at 12pm-2pm Dinner at 6pm (10 forks of protein and 10 forks of salad/vegetables). Drinking 60 oz of water Current exercise plan includes: [employer], 4 x per week, elliptical, bike 300-350 calories. PFSH Surgical History Hx of cholecystectomy Hx of tubal ligation Hx of section Family History Mother No problems noted. Father No problems noted. Brother No problems noted. Brother No problems noted. Brother No problems noted. Brother No problems noted. Sister No problems noted. Daughter No problems noted. Son No problems noted. Son No problems noted. Social History Alcohol intake: never Patient Tobacco Use Status: Never used Tobacco Physical Exam Vital Signs: BMI result Body Mass Index 45.6 Assessment & Plan Assessment & Plan (1) Morbid obesity: Code(s): E66.01 - Morbid (severe) obesity due to excess calories Plan: No significant weight loss in the 1 month. Patient feels as though her exercise has been her barrier. Encouraged her to increase exercise to 5 days per week, with a goal of burning 400 calories per day or more, or 2000 calories per week total. She states she is following the meal plan and will continue to do so. Return to clinic in 3 weeks Telehealth Telehealth Location of provider rendering services: practice address Location of patient: other Patient Identification confirmed using: Name, : Yes Telehealth method: voice only Patient verbally consented to treatment: Yes Patient verbally consented to billing insurance company: Yes Patient informed of any privacy concerns related to visit: Yes Minutes spent on Phone/Video with Pt.: 10 Coding Level of Care Code Tele Est Pt Level 3 (72852) Diagnoses Morbid obesity E66.01 Time Spent (min) 15
[2023-08-29 14:45] VITALS: BMI 45.6
== END 2023-08-29 15:48 | disposition home or self-care (01) ==
LOC: HO.HBS 15:04
PROVIDERS: Visit Provider Physician Assistant Surgical
DX: E66.01 Morbid (severe) obesity due to excess calories (principal)
CPT/HCPCS: 99213

== ENCOUNTER → 2023-08-29 15:04 | Outpatient (BNVA) | payer OTHER, SELFPAY | PROVIDERS: Visit Provider Physician Assistant Surgical ==

== ENCOUNTER → 2023-08-30 09:41 | Outpatient (BNVA) | payer OTHER, SELFPAY | PROVIDERS: Visit Provider Dietitian, Registered | DX: E66.9 Obesity, unspecified (principal); Z71.3 Dietary counseling and surveillance | CPT/HCPCS: 97803 ==